=== PATIENT | female | born 1970 | race Two or more races ===

== ENCOUNTER → 2017-03-20 | Outpatient (CLI) | payer OTHER ==
[~2017-03-20] MED LIST: BETA15CR5 TP; CETI10TA22 PO; IBUP-1060 PO
[2017-03-20 17:44] LABS: BASO # 0.1 x10^3/uL (0.0-0.2); BASO % 1 % (0-3); EOS % 4 % (0-3); HEMATOCRIT 41.6 % (36.0-47.0); HEMOGLOBIN 14.1 g/dL (12.0-15.5); LYMPH # 1.7 x10^3/uL (1.0-4.8); LYMPH % 29 % (24-48); MEAN CORPUSCULAR HEMOGLOBIN 29 pg (25-35); MEAN CORPUSCULAR HGB CONC 34 g/dL (31-37); MEAN CORPUSCULAR VOLUME 86 fL (79-100); MONO % 7 % (0-9); NEUT % 59 % (31-73); PLATELET COUNT 232 x10^3/uL (140-400); RED BLOOD COUNT 4.84 x10^6/uL (3.50-5.40); RED CELL DISTRIBUTION WIDTH 13.2 % (11.5-14.5)
[2017-03-20 17:58] LABS: CALCIUM 9.2 mg/dL (8.5-10.1); GFR 59.2; POTASSIUM 3.8 mmol/L (3.5-5.1); TOTAL BILIRUBIN 0.3 mg/dL (0.2-1.0); TOTAL PROTEIN 8.2 g/dL (6.4-8.2)
[2017-03-21 05:20] LABS: FSH 41.6 mIU/mL (.); LUTEINIZING HORMONE 27.6 mIU/mL (.)
== END | disposition home or self-care (01) ==
LOC: SURGPAT 16:02
PROVIDERS: ATTEND Obstetrics & Gynecology
DX: Z01.812 Encounter for preprocedural laboratory examination (principal)
CPT/HCPCS: 36415; 80053; 83001; 83002; 85027

== ENCOUNTER 2017-03-27 06:06 | Inpatient (IN) | payer OTHER ==
[2017-03-27] VITALS (9 sets, daily range): BP systolic 106–135; BP diastolic 75–95
[~2017-03-27] VITALS: Ht 165.1 cm; Wt 101.6 kg
[2017-03-27] MEDS ORDERED: fentaNYL PF VIAL 100 MCG/2 ML VIAL IV PRN (07:00)
[2017-03-27] MEDS ORDERED: ONDANSETRON PF 4 MG/2 ML VIAL. IV PRN ×2 (07:00→11:00)
[2017-03-27] MEDS ORDERED: LIDOCAINE 1% 1 ML SYRINGE. ID PRN (07:00)
[2017-03-27] MEDS ORDERED: IV RINGERS,LACTATED 1000ML 1,000 ML IV SCH (07:00)
[2017-03-27] MEDS ORDERED: PROCHLORPERAZINE 10 MG/2 ML VIAL. IV PRN (07:00)
[2017-03-27] MEDS ORDERED: HYDROmorphone 2 MG/ML VIAL IV PRN ×2 (07:00→11:00)
[2017-03-27] MEDS ORDERED: MORPHINE SULFATE 2 MG/ML DISP.SYRIN. IV PRN (07:00)
[2017-03-27] MEDS ORDERED: VASOPRESSIN 20 UNIT/ML VIAL. ONE ×2 (07:06→08:52)
[2017-03-27] MEDS ORDERED: BUPIVACAINE-EPI 0.5%-1:200000 50 ML VIAL. ONE (07:06)
[2017-03-27] MEDS ORDERED: DEXAMETHASONE SOD PHOS 20 MG/5 ML VIAL. ONE (07:09)
[2017-03-27] MEDS ORDERED: ONDANSETRON PF 4 MG/2 ML VIAL. ONE (07:09)
[2017-03-27] MEDS ORDERED: PROPOFOL 20 ML IV ONE (07:10)
[2017-03-27] MEDS ORDERED: LIDOCAINE 2% 100 MG/5 ML SYRINGE. ONE (07:10)
[2017-03-27] MEDS ORDERED: MIDAZOLAM HCL/PF 2 MG/2 ML VIAL. ONE (07:10)
[2017-03-27] MEDS ORDERED: fentaNYL PF VIAL 100 MCG/2 ML VIAL ONE ×3 (07:10→09:57)
[2017-03-27] MEDS ORDERED: ROCURONIUM 50 MG/5 ML VIAL. ONE ×2 (07:10→09:33)
[2017-03-27 07:20] LABS: NEG OBC UR NEG; POS OBC UR POS
[2017-03-27] MEDS ORDERED: GLYCOPYRROLATE 1 MG/5 ML VIAL. ONE (08:32)
[2017-03-27] MEDS ORDERED: SEVOFLURANE > 120 MINUTES. IH ONE (09:39)
[2017-03-27] MEDS ORDERED: ACETAMINOPHEN INTRAVENOUS 100 ML IV ONE ×2 (09:52→10:00)
[2017-03-27] MEDS ORDERED: NEOSTIGMINE METHYLSULFATE 5 MG/5 ML SYRINGE. ONE (10:21)
--- NOTE | 2017-03-27 10:48 | PDOC ---
BRIEF OPERATIVE NOTE Date: Mar 27, 2017 Pre-Op Diagnosis fibroid uterus, pelvic pain Post-Op Diagnosis same plus pelvic adhesive disease Procedure Performed carla and enterolysis Surgeon [employer] Compliance Director Timothy Anesthesiologist Analia Anesthesia Type: General Blood Loss 800cc IV Fluid 2000cc LR Urine Output 225cc- clear Specimens Obtained uterus, segments of tubes. Ovaries were not seen despite multiple attempts to locate them Findings see dictation; fibroids Complications none Additional Remarks [id number] DARLING JOE MD Mar 27, 2017 10:48
[2017-03-27] MEDS: fentaNYL PF VIAL 100 MCG/2 ML VIAL IV PRN ×4 (10:56→11:35)
[2017-03-27] MEDS ORDERED: ZOLPIDEM 5 MG TABLET. PO PRN (11:00)
[2017-03-27] MEDS ORDERED: ALBUTEROL SULFATE 2.5 MG/3 ML NEBU. NEB PRN (11:00)
[2017-03-27] MEDS ORDERED: oxyCODONE/APAP 5/325 1 TAB TABLET PO PRN (11:00)
[2017-03-27] MEDS ORDERED: CALCIUM CARBONATE 500 MG TAB.CHEW PO PRN (11:00)
[2017-03-27] MEDS ORDERED: diphenhydrAMINE HCL 25 MG CAPSULE PO PRN (11:00)
[2017-03-27] MEDS ORDERED: METOCLOPRAMIDE HCL 10 MG/2 ML VIAL. IV PRN (11:00)
[2017-03-27] MEDS ORDERED: NALOXONE 0.4 MG/ML VIAL. IV PRN (11:00)
[2017-03-27] MEDS ORDERED: 0.9 % SODIUM CHLORIDE 10 ML DISP.SYRIN. IV PRN (11:00)
[2017-03-27] MEDS ORDERED: LACTULOSE 20 GM/30 ML SOLUTION. PO PRN (11:00)
[2017-03-27] MEDS ORDERED: HYDROmorphone 2 MG/ML VIAL IM PRN (11:00)
[2017-03-27] MEDS ORDERED: diphenhydrAMINE 50 MG/ML VIAL IV PRN (11:15)
[2017-03-27] MEDS: KETOROLAC TROMETHAMINE 30 MG/ML INJ. IV PRN ×2 (13:58→22:43)
--- NOTE | 2017-03-27 14:33 | OP ---
DATE OF SURGERY: PREOPERATIVE DIAGNOSES: Fibroid uterus and pelvic pain. POSTOPERATIVE DIAGNOSES: 1. Fibroid uterus and pelvic pain. 2. Pelvic adhesive disease. PROCEDURE: Total abdominal hysterectomy and enterolysis. SURGEON: Chitra Joe MD. ANESTHESIOLOGIST: Adis Tejada MD ANESTHESIA TYPE: General. ESTIMATED BLOOD LOSS: 800 mL. INTRAVENOUS FLUIDS: 2000 mL of LR. URINE OUTPUT: 225 mL of clear urine. SPECIMENS: Enlarged fibroid uterus and probable segments of tubes. The ovaries were not seen despite multiple attempts to locate them. COMPLICATIONS: None. DESCRIPTION OF PROCEDURE: After informed consent was obtained, the patient was taken to the operating room and given a smooth induction of anesthesia without complications. Her abdomen was prepped and draped in the usual sterile fashion. She was in the supine position with a Anne catheter placed. She was given 1 g of Ancef prior to the procedure beginning. A Pfannenstiel incision was made 2 fingerbreadths above the pubic bone with a knife. The incision was carried down through the subcuticular tissue using dissection with the Bovie. The fascia was scored bilaterally and then extended bilaterally using dissection with the Pope scissors. We then the rectus muscles in the midline and entered the peritoneum using blunt dissection. We extended the peritoneal incision using blunt force and encountered the fibroid uterus. The uterus was very large, at least 24-25 weeks size with multiple large fibroids. When we felt around the back of the uterus in order to lift it up out of the incision, it was noted to be adherent in multiple places to the colon and bowel behind it. The patient had not had any surgery in the past, so this was a little bit of a surprise. We were able to find the round ligament on the left side. This ligament was tied off in two occasions and transected in the middle. We then dissected along the anterior peritoneum creating a bladder flap using sharp dissection. At this point, we attempted to move the uterus around so that we could dissect some of the tissue off of the back. We were able to dissect some of this with blunt dissection was just her fingers and some of it had to be dissected with the Metzenbaum scissors. We were able to transect the round ligament on the left side using the similar process. Again, the bladder flap was extended anteriorly over the bladder and the bladder was retracted inferiorly using blunt dissection with a Ray-Jhonny; the bladder came down very easily. As we attempted to move the uterus up out of the pelvis; we had one of fibroids that we had a tenaculum on and it was starting to come out of the uterus. Therefore, we did a myomectomy and removed this fibroid. There was another one on the anterior surface that we did the same procedure to. The pedicles were tied off with two transfixion sutures. We then turned our attention to the uterine blood supply. We were able to get the blood supply on the right side using curved Heaneys, we clamped them twice and clamped the blood supply twice, cut the pedicle and then secured with two Tam transfixion sutures. We were then able to dissect down the side of the cervix using straight Heaneys and these were tied off in a similar fashion; these pedicles were tied off in the similar fashion. We were then able to mobilize the uterus a little bit better. We were able to finally bring it up out of the pelvis and see the posterior adhesions a little bit better. Most of these were dissected bluntly and this was where most of our bleeding came from. Because what appeared to be small bowel was so adherent on the right side of the posterior uterus, we decided to score the back of the uterus and actually push some of the uterine tissue down to take the small bowel with it similar to an intrafascial hysterectomy. Once this was done, the adhesions were all out of the way. We were then able proceed with the hysterectomy, we continued to clamp, cut and ligate the uterine pedicles going down to the cervix. Once these were taken down, we were able to enter the vagina at the level of the cervix. The Vaughn scissors were then used to cut around the top of the vagina. The uterus was then removed from the field. She actually had a very small cervix, but the uterus itself was just very large and then there was a little tear down the left vaginal wall, which were repaired coming up the side. We then placed two angle stitches on top of the cuff and then closed the cuff using interrupted [id number] sutures in the middle. Once this was complete, we turned our attention to find the ovaries. At this point, we had not seen the ovaries at all. We had traced part of at least one of the tubes which was on the right side that was attached to the uterus and we were able to remove this with the uterus. However, we were never able to identify the ovary on either side. We manipulated the bowel to be able to see both sides of the pelvis very well. We traced the round ligaments back to their entrance and so we could not find the ovaries. The patient's wish was to take her ovaries; however since we were unable to locate them and we felt that digging around into the pelvic sidewall was only going to serve to extract more bleeding, we decided to abandon our search for the ovaries at this point. We irrigated the pelvis copiously. There was some general oozing, but no active bleeding. We could not find the location where the bleeding was actually coming from. We did spray Dre on the raw surfaces and this seemed to take care of all of the oozing. We decided to place a drain in the pelvis. This was placed into the depth of the pelvis. We then brought it out through the lower skin incision using a Victorino through the fascia. This was secured to the skin with stitch of 4-[address] in [address]. We then allowed the bowel to fall back into its natural position. All needle and sponge counts were correct at this point in time. We closed the fascia with a running nonlocking suture of 2-0 Vicryl and irrigated the subcuticular tissue. We placed a subcuticular stitch of 3-0 Vicryl to help close the space and then closed the skin with francisco javier. At this point, the procedure was terminated. The patient tolerated the procedure well. Her blood loss was 800 mL. Her IV fluid was 2000 of LR and her urine output was 225 mL of clear urine. I do need to mention that we did palpate the ureter on both sides but we were never able to see them. The patient tolerated the procedure well. There were no complications. CHITRA JOE MD DR: JOSE LUIS/thu JOB#: [id number] / [id number]
[2017-03-28 03:17] VITALS: BP 119/74
[2017-03-28 05:21] LABS: BASO % 0 % (0-3); EOS % 0 % (0-3); HEMATOCRIT 31.3 % (36.0-47.0); HEMOGLOBIN 10.7 g/dL (12.0-15.5); LYMPH # 1.1 x10^3/uL (1.0-4.8); LYMPH % 13 % (24-48); MEAN CORPUSCULAR HEMOGLOBIN 29 pg (25-35); MEAN CORPUSCULAR HGB CONC 34 g/dL (31-37); MEAN CORPUSCULAR VOLUME 85 fL (79-100); MONO % 12 % (0-9); NEUT % 75 % (31-73); PLATELET COUNT 186 x10^3/uL (140-400); RED BLOOD COUNT 3.68 x10^6/uL (3.50-5.40); RED CELL DISTRIBUTION WIDTH 13.2 % (11.5-14.5); WHITE BLOOD COUNT 8.7 x10^3/uL (4.0-11.0)
[2017-03-28 05:30] LABS: CALCIUM 8.5 mg/dL (8.5-10.1); CREATININE 1.1 mg/dL (0.6-1.0); POTASSIUM 4.5 mmol/L (3.5-5.1)
[2017-03-28] MEDS: KETOROLAC TROMETHAMINE 30 MG/ML INJ. IV PRN (06:02)
[2017-03-28 06:36] VITALS: BP 108/71
--- NOTE | 2017-03-28 08:26 | PDOC ---
SURGICAL PROGRESS NOTE Subjective Pt doing well. Is drinking without nausea. Pain under control with dilaudid. No complaints this am. Discussed surgery and difficulty. Vital Signs Vital Signs Date Time Temp Pulse Resp B/P Pulse Ox O2 Delivery O2 Flow Rate FiO2 03/28/17 06:36 98.7 87 18 108/71 95 Room Air 98.7 03/27/17 23:15 2.0 I&O Intake and Output 03/28/17 07:00 Intake Total 1990 ml Output Total 2060 ml Balance -70 ml Intake Oral 640 ml Other 1350 ml Output Urine Total 1450 ml Drainage Total 610 ml PATIENT HAS A ZAFAR: No (zafar removed this am) General: Alert, Oriented X3, Cooperative, No acute distress HEENT: Mucous membr. moist/pink Abdomen: Normal bowel sounds, Soft, No tenderness, No hepatosplenomegaly, No masses, Other (Incision soft, NT, no masses) Labs Creatinine elevated at 1.1. Laboratory Tests Test 03/27/17 06:15 03/27/17 15:00 03/28/17 05:05 Urine Test Negative (NEG) Hematocrit 37.8% (36.0-47.0) 31.3% (36.0-47.0) White Blood Count 8.7x10^3/uL (4.0-11.0) Red Blood Count 3.68x10^6/uL (3.50-5.40) Hemoglobin 10.7g/dL (12.0-15.5) Mean Corpuscular Volume 85fL (79-100) Mean Corpuscular Hemoglobin 29pg (25-35) Mean Corpuscular Hemoglobin Concent 34g/dL (31-37) Red Cell Distribution Width 13.2% (11.5-14.5) Platelet Count 186x10^3/uL (140-400) Neutrophils (%) (Auto) 75% (31-73) Lymphocytes (%) (Auto) 13% (24-48) Monocytes (%) (Auto) 12% (0-9) Eosinophils (%) (Auto) 0% (0-3) Basophils (%) (Auto) 0% (0-3) Neutrophils # (Auto) 6.5x10^3uL (1.8-7.7) Lymphocytes # (Auto) 1.1x10^3/uL (1.0-4.8) Monocytes # (Auto) 1.0x10^3/uL (0.0-1.1) Eosinophils # (Auto) 0.0x10^3/uL (0.0-0.7) Basophils # (Auto) 0.0x10^3/uL (0.0-0.2) Sodium Level 139mmol/L (136-145) Potassium Level 4.5mmol/L (3.5-5.1) Chloride Level 106mmol/L (98-107) Carbon Dioxide Level 27mmol/L (21-32) Anion Gap 6 (6-14) Blood Urea Nitrogen 13mg/dL (7-20) Creatinine 1.1mg/dL (0.6-1.0) Estimated GFR (Cockcroft-Gault) 53.0 Glucose Level 121mg/dL (70-99) Calcium Level 8.5mg/dL (8.5-10.1) Laboratory Tests Test 03/27/17 15:00 03/28/17 05:05 Hematocrit 37.8% (36.0-47.0) 31.3% (36.0-47.0) White Blood Count 8.7x10^3/uL (4.0-11.0) Red Blood Count 3.68x10^6/uL (3.50-5.40) Hemoglobin 10.7g/dL (12.0-15.5) Mean Corpuscular Volume 85fL (79-100) Mean Corpuscular Hemoglobin 29pg (25-35) Mean Corpuscular Hemoglobin Concent 34g/dL (31-37) Red Cell Distribution Width 13.2% (11.5-14.5) Platelet Count 186x10^3/uL (140-400) Neutrophils (%) (Auto) 75% (31-73) Lymphocytes (%) (Auto) 13% (24-48) Monocytes (%) (Auto) 12% (0-9) Eosinophils (%) (Auto) 0% (0-3) Basophils (%) (Auto) 0% (0-3) Neutrophils # (Auto) 6.5x10^3uL (1.8-7.7) Lymphocytes # (Auto) 1.1x10^3/uL (1.0-4.8) Monocytes # (Auto) 1.0x10^3/uL (0.0-1.1) Eosinophils # (Auto) 0.0x10^3/uL (0.0-0.7) Basophils # (Auto) 0.0x10^3/uL (0.0-0.2) Sodium Level 139mmol/L (136-145) Potassium Level 4.5mmol/L (3.5-5.1) Chloride Level 106mmol/L (98-107) Carbon Dioxide Level 27mmol/L (21-32) Anion Gap 6 (6-14) Blood Urea Nitrogen 13mg/dL (7-20) Creatinine 1.1mg/dL (0.6-1.0) Estimated GFR (Cockcroft-Gault) 53.0 Glucose Level 121mg/dL (70-99) Calcium Level 8.5mg/dL (8.5-10.1) I have reviewed the following labs, vitals, exam Problem List POD #1 s/p Hector and extensive adhesiolysis. Pt is clinically stable, but drain is putting out excessive serosang. fluid and creatinine is elevated. Will evaluate kidneys and ureters to r/o injury Problems Medical Problems: (1) Fibroid, uterine Status: Acute (2) Pelvic adhesive disease Status: Acute (3) Pelvic pain Status: Acute 4) elevated creatinine. - will evaluate for possible injury to ureters or kidney. Urine output is acceptable. 5) anemia- from surgery. Problems: DARLING JOE MD Mar 28, 2017 08:26
[2017-03-28] MEDS: CETIRIZINE HCL 10 MG TABLET. PO SCH (09:27)
[2017-03-28] MEDS: SIMETHICONE 80 MG TAB.CHEW PO PRN ×2 (09:28→18:05)
[2017-03-28] MEDS: HYDROcodone/APAP 5/325MG 1 TAB TABLET PO PRN (09:28)
[2017-03-28] MEDS ORDERED: IOHEXOL 300 MG/ML 50 ML VIAL. IV ONE (09:30)
[2017-03-28] MEDS ORDERED: CONTRAST GIVEN MC PRN (09:30)
[2017-03-28 11:00] VITALS: BP 124/76
--- NOTE | 2017-03-28 11:07 | RAD ---
IVP History: Elevated creatinine after hysterectomy. Evaluate for ureteral injury. Comparison: None. Technique: 1 flying ii instructor overhead radiograph was obtained. 50 mL of Omnipaque 300 intravenous contrast were then administered to the patient. Overhead radiographs of the abdomen were obtained 1, 5, 10, and 15 minutes after contrast injection. 2 additional fluoroscopic images of the abdomen and pelvis were obtained. Total fluoroscopic time was 0.3 minutes. Findings: Financial Agent image demonstrates gas-filled loops of colon small bowel. Bowel loops do not appear dilated. Surgical drain is seen in the pelvis. Horizontally oriented surgical skin francisco javier are seen involving the lower pelvis. There is no gas seen in the pelvis, compatible with the history of recent hysterectomy. Postcontrast images demonstrate symmetric enhancement of both kidneys. There is opacification of the proximal and mid third of the left ureter. The distal third left ureter is not seen. Portions of the proximal right ureter are seen as well as the upper portion of the distal third of the right ureter. The most distal aspects of both ureters were not captured radiographically. 2 spot fluoroscopic images were obtained in attempt to visualize the distal ureters, but distal ureters are not seen secondary to transit of contrast material into the urinary bladder. There is no evidence of ureteral dilatation to suggest ligation or extraluminal contrast to suggest ureteral injury. Urinary bladder has appropriate contour. Impression: Limited visualization of portions of both ureters. No ureteral dilatation or extraluminal contrast is identified to suggest ureteral ligation or injury.
[2017-03-28 14:19] VITALS: BP 140/89
[2017-03-28] MEDS: IBUPROFEN 600 MG TABLET. PO PRN (21:35)
[2017-03-28 23:19] VITALS: BP 121/76
[2017-03-29] MEDS: BISACODYL 10 MG SUPP.RECT. PR PRN (06:15)
[2017-03-29] MEDS: IBUPROFEN 600 MG TABLET. PO PRN ×2 (06:16→17:36)
[2017-03-29 06:34] VITALS: BP 104/70
[2017-03-29] MEDS: CETIRIZINE HCL 10 MG TABLET. PO SCH (08:16)
[2017-03-29] MEDS: SIMETHICONE 80 MG TAB.CHEW PO PRN ×2 (08:16→17:43)
[2017-03-29] MEDS: MAG HYDROX/ALUMINUM HYD/SIMETH 30 ML ORAL.SUSP PO PRN (08:16)
[2017-03-29] MEDS: HYDROcodone/APAP 5/325MG 1 TAB TABLET PO PRN (08:17)
--- NOTE | 2017-03-29 08:54 | PDOC ---
SURGICAL PROGRESS NOTE Subjective Doing well. Tolerating regular diet and passing some gas. Feeling gas rumbling around in stomach. Taking mostly motrin, although has used some lortab and feels like this is working better. Vital Signs Vital Signs Date Time Temp Pulse Resp B/P Pulse Ox O2 Delivery O2 Flow Rate FiO2 03/29/17 08:17 18 Room Air 03/29/17 06:34 98.1 76 104/70 98.1 03/28/17 14:19 96 I&O Intake and Output 03/29/17 06:59 Intake Total 1440 ml Output Total 1905 ml Balance -465 ml Intake Oral 1440 ml Output Urine Total 950 ml Drainage Total 955 ml # Voids 1 PATIENT HAS A COLMENARES: No General: Alert, Oriented X3, Cooperative, No acute distress HEENT: Mucous membr. moist/pink Abdomen: Normal bowel sounds, Soft, No tenderness, No hepatosplenomegaly, No masses, Other (incision c/d/i) Extremities: No clubbing, No cyanosis, No edema, Normal pulses, No tenderness/ swelling Skin: No rashes, No breakdown, No significant lesion Neuro: Normal gait, Normal speech, Strength at 5/5 X4 ext, Normal tone, Sensation intact, Reflexes 2+ Psych/Mental Status: Mental status NL, Mood NL Labs Labs have not yet been drawn this morning. Laboratory Tests Test 03/27/17 15:00 03/28/17 05:05 Hematocrit 37.8% (36.0-47.0) 31.3% (36.0-47.0) White Blood Count 8.7x10^3/uL (4.0-11.0) Red Blood Count 3.68x10^6/uL (3.50-5.40) Hemoglobin 10.7g/dL (12.0-15.5) Mean Corpuscular Volume 85fL (79-100) Mean Corpuscular Hemoglobin 29pg (25-35) Mean Corpuscular Hemoglobin Concent 34g/dL (31-37) Red Cell Distribution Width 13.2% (11.5-14.5) Platelet Count 186x10^3/uL (140-400) Neutrophils (%) (Auto) 75% (31-73) Lymphocytes (%) (Auto) 13% (24-48) Monocytes (%) (Auto) 12% (0-9) Eosinophils (%) (Auto) 0% (0-3) Basophils (%) (Auto) 0% (0-3) Neutrophils # (Auto) 6.5x10^3uL (1.8-7.7) Lymphocytes # (Auto) 1.1x10^3/uL (1.0-4.8) Monocytes # (Auto) 1.0x10^3/uL (0.0-1.1) Eosinophils # (Auto) 0.0x10^3/uL (0.0-0.7) Basophils # (Auto) 0.0x10^3/uL (0.0-0.2) Sodium Level 139mmol/L (136-145) Potassium Level 4.5mmol/L (3.5-5.1) Chloride Level 106mmol/L (98-107) Carbon Dioxide Level 27mmol/L (21-32) Anion Gap 6 (6-14) Blood Urea Nitrogen 13mg/dL (7-20) Creatinine 1.1mg/dL (0.6-1.0) Estimated GFR (Cockcroft-Gault) 53.0 Glucose Level 121mg/dL (70-99) Calcium Level 8.5mg/dL (8.5-10.1) I have reviewed the following vitals, PE Problem List POD #2 s/p SEBAS and extensive adhesiolysis Pt is tolerating diet and ambulating. If labs are normal, pt would like to go home. Is comfortable emptying her drain at home and will keep track of her output. Problems Medical Problems: (1) Fibroid, uterine Status: Acute (2) Pelvic adhesive disease Status: Acute (3) Pelvic pain Status: Acute 4) elevated creatinine yesterday. Awaiting labs for today. IVP yesterday did not show any evidence of ureteral injury due to surgery. Plan for discharge Problems: DARLING JOE MD Mar 29, 2017 08:54
--- NOTE | 2017-03-29 08:56 | DISCH ---
DISCHARGE INSTRUCTIONS Condition on Discharge Condition on Discharge: Stable Activity After Discharge Activity Instructions for Disc: Activity as tolerated, Progressive ambulation Exercise Instruction after Dis: Progress as tolerated Driving Instructions after Dis: No driving for 2 weeks Weight Bearing Status after Di: Full weight bearing Diet after Discharge Diet after Discharge: Regular Wound Incision Care Wound/Incision Care: Ice to area for comfort, May get incision wet Other wound/incision instructi: empty drain and keep track of output Contacting the DR. after DC Call your doctor for: If your condition worsens Follow-Up Follow up with: Dr. Joe on Saturday as scheduled DARLING JOE MD Mar 29, 2017 08:56
[2017-03-29 11:11] LABS: ALBUMIN 3.1 g/dL (3.4-5.0); ALBUMIN/GLOBULIN RATIO 0.8 (1.0-1.7); CALCIUM 8.8 mg/dL (8.5-10.1); CREATININE 1.2 mg/dL (0.6-1.0); GFR 47.9; POTASSIUM 4.1 mmol/L (3.5-5.1); TOTAL BILIRUBIN 0.3 mg/dL (0.2-1.0)
[2017-03-29 15:00] VITALS: BP 113/81
--- NOTE | 2017-03-29 16:03 | PATHOLOGY ---
PATHOLOGY REPORT * * * * * * * * FINAL DIAGNOSIS: Uterus, cervix, and fallopian tube, "uterus and cervix," hysterectomy: - Uterine cervix with moderate chronic cervicitis and reactive changes. - An endometrial polyp with disordered proliferative phase bordering on focal simple hyperplasia without atypia. - Adenomyosis - Myometrium with multiple cellular leiomyomas measuring up to 11.0 cm in greatest dimension without any hemorrhage, necrosis, or marked atypia. - Fallopian tube with focus of endometriosis and surrounding fibrosis. - Portion of ovary with the attached portion of grossly described leiomyoma. - There is no evidence of malignancy. REPORT ELECTRONICALLY SIGNED BY: Ambrocio Forde M.D. DATE/TIME: 03/29/2017 16:03 * * * * * * * * GROSS PATHOLOGY: A. Received in formalin, labeled "RosalesMatthew simmons-uterus, cervix" is a hysterectomy specimen (1784 g, approximately 17.5 x 17.5 x 15 cm). The serosa is brown-moffett, smooth to ragged and glistening with multiple areas of adhesions. For grossing purposes, the aspect with more adhesions will be denoted posterior. The cervix is yellow-pink, smooth and glistening and measures 2.2 x 1.5 cm. The cervical os is round and measures 0.3 cm. The cervical os is probed patent, and the uterus is bisected coronally to reveal a 15 x 6 cm endometrial cavity. The anterior endometrial cavity features a 4.1 x 2.6 x 1.3 cm red-barfield endometrial polyp and a 0.7 cm apparent submucosal leiomyoma. The uterus is serially sectioned to reveal an average endometrial thickness of 0.1 cm and an average myometrial thickness of approximately 6.5 cm. The uterus reveals numerous subserosal, submucosal and mural whorled barfield-pink nodules grossly consistent with leiomyomata, measuring up to 11 cm in greatest dimension. No discrete hemorrhage or necrosis is grossly identified within the leiomyomata. Attached to the uterus is the left tube (8 cm in length, ranging in diameter from 0.3 cm up to 1.0 cm). The tube features multiple areas of adhesions. The tube is sectioned and appears otherwise grossly unremarkable. Adjacent to the tube, there is a 3.8 x 3.7 x 3.2 cm moffett-brown mass. The mass is sectioned to reveal a white-barfield apparent leiomyoma. No discrete hemorrhage or necrosis is grossly identified. The rim surrounding the apparent leiomyoma appears grossly consistent with ovarian parenchyma. Also within the container, there are 3 yellow-barfield to purple-moffett tissue fragments (139 g, 8 x 6 x 4 cm in loose aggregate). The 2 larger fragments are sectioned and appear grossly consistent with leiomyomata. No discrete hemorrhage or necrosis is grossly identified. The smallest tissue fragment is sectioned to reveal a rubbery cut surface. Service Trainer sections are submitted as follows: A1-agency service representative sections of anterior cervix A2-agency service representative sections of posterior cervix P8-Q1-eadvaqycmobipa sections of anterior uterus, including endometrial polyp described above in its entirety (A6-A7 is one full length section, bisected) A8-additional agency service representative sections of anterior uterus, including agency service representative sections of leiomyomata Y7-V83-elceprubnjbbwq sections of posterior uterus (A9 contains agency service representative section of leiomyoma and A10-A11 contains agency service representative sections of largest leiomyoma) H44-bqgjrekvjdehqh sections of tube E68-P51-fkxnsrzyvtntbv sections of ovary and leiomyoma described above X49-uilkkjnflaeurn sections of the 3 additional tissue fragments within the container (GARRETT; 03/28/2017) INITIAL CPT CODE(S): A; 17913 Professional services performed by [facility] at [address] [address] Technical services performed by [facility] at [address] [place] [address], [facility] [address] [address]. SPECIMEN(S) RECEIVED: A.Uterus, cervix CLINICAL HISTORY: Fibroids PATIENT: MATTHEW ROSALES /AGE: 706/07/1970 (Age: 46) PATIENT #: [id number] ALT CASE #: SPECIMEN COLLECTION DATE: 03/27/2017 SPECIMEN RECEIVED DATE: 03/27/2017 [facility] - [id number] [place] [address] - PHONE: [phone] * * * END OF REPORT * * *
--- NOTE | 2017-03-29 17:31 | PDOC ---
SURGICAL PROGRESS NOTE Subjective Pt without complaint. Is eating and tolerating her oral pain meds. Urine has been clear Vital Signs Vital Signs Date Time Temp Pulse Resp B/P Pulse Ox O2 Delivery O2 Flow Rate FiO2 03/29/17 15:00 98.4 85 20 113/81 94 Room Air 98.4 I&O Intake and Output 03/29/17 07:00 Intake Total 1440 ml Output Total 1905 ml Balance -465 ml Intake Oral 1440 ml Output Urine Total 950 ml Drainage Total 955 ml # Voids 1 PATIENT HAS A COLMENARES: No General: Alert, Oriented X3, Cooperative, No acute distress HEENT: Mucous membr. moist/pink Labs Laboratory Tests Test 03/28/17 05:05 03/29/17 10:20 03/29/17 10:25 White Blood Count 8.7x10^3/uL (4.0-11.0) Red Blood Count 3.68x10^6/uL (3.50-5.40) Hemoglobin 10.7g/dL (12.0-15.5) 10.4g/dL (12.0-15.5) Hematocrit 31.3% (36.0-47.0) Mean Corpuscular Volume 85fL (79-100) Mean Corpuscular Hemoglobin 29pg (25-35) Mean Corpuscular Hemoglobin Concent 34g/dL (31-37) Red Cell Distribution Width 13.2% (11.5-14.5) Platelet Count 186x10^3/uL (140-400) Neutrophils (%) (Auto) 75% (31-73) Lymphocytes (%) (Auto) 13% (24-48) Monocytes (%) (Auto) 12% (0-9) Eosinophils (%) (Auto) 0% (0-3) Basophils (%) (Auto) 0% (0-3) Neutrophils # (Auto) 6.5x10^3uL (1.8-7.7) Lymphocytes # (Auto) 1.1x10^3/uL (1.0-4.8) Monocytes # (Auto) 1.0x10^3/uL (0.0-1.1) Eosinophils # (Auto) 0.0x10^3/uL (0.0-0.7) Basophils # (Auto) 0.0x10^3/uL (0.0-0.2) Sodium Level 139mmol/L (136-145) 140mmol/L (136-145) Potassium Level 4.5mmol/L (3.5-5.1) 4.1mmol/L (3.5-5.1) Chloride Level 106mmol/L (98-107) 104mmol/L (98-107) Carbon Dioxide Level 27mmol/L (21-32) 31mmol/L (21-32) Anion Gap 6 (6-14) 5 (6-14) Blood Urea Nitrogen 13mg/dL (7-20) 12mg/dL (7-20) Creatinine 1.1mg/dL (0.6-1.0) 1.2mg/dL (0.6-1.0) Estimated GFR (Cockcroft-Gault) 53.0 47.9 Glucose Level 121mg/dL (70-99) 125mg/dL (70-99) Calcium Level 8.5mg/dL (8.5-10.1) 8.8mg/dL (8.5-10.1) BUN/Creatinine Ratio 10 (6-20) Total Bilirubin 0.3mg/dL (0.2-1.0) Aspartate Amino Transf (AST/SGOT) 30U/L (15-37) Alanine Aminotransferase (ALT/SGPT) 30U/L (14-59) Alkaline Phosphatase 47U/L (46-116) Total Protein 7.0g/dL (6.4-8.2) Albumin 3.1g/dL (3.4-5.0) Albumin/Globulin Ratio 0.8 (1.0-1.7) Laboratory Tests Test 03/29/17 10:20 03/29/17 10:25 Hemoglobin 10.4g/dL (12.0-15.5) Sodium Level 140mmol/L (136-145) Potassium Level 4.1mmol/L (3.5-5.1) Chloride Level 104mmol/L (98-107) Carbon Dioxide Level 31mmol/L (21-32) Anion Gap 5 (6-14) Blood Urea Nitrogen 12mg/dL (7-20) Creatinine 1.2mg/dL (0.6-1.0) Estimated GFR (Cockcroft-Gault) 47.9 BUN/Creatinine Ratio 10 (6-20) Glucose Level 125mg/dL (70-99) Calcium Level 8.8mg/dL (8.5-10.1) Total Bilirubin 0.3mg/dL (0.2-1.0) Aspartate Amino Transf (AST/SGOT) 30U/L (15-37) Alanine Aminotransferase (ALT/SGPT) 30U/L (14-59) Alkaline Phosphatase 47U/L (46-116) Total Protein 7.0g/dL (6.4-8.2) Albumin 3.1g/dL (3.4-5.0) Albumin/Globulin Ratio 0.8 (1.0-1.7) I have reviewed the following labs, vitals Problem List Problems Medical Problems: (1) Fibroid, uterine Status: Acute (2) Pelvic adhesive disease Status: Acute (3) Pelvic pain Status: Acute Assessment/Plan Since pt had 900+cc of drain output yesterday, I spoke to Dr. Boo (urology). I expressed my concern about her drain output. Discussed that the IVP did not show any ureteral or bladder injury. Dr. Boo reviewed the IVP and stated that with the bowel gas in the way, this could obscure a small extravasation of contrast. Discussed the surgery. Doubt bladder injury, as the bladder was easy to dissect and there were no adhesions here. The adhesions were on the back and sides of the very large uterus. Dr. Boo suggested we do a creatinine on the MOLLY drainage. We ordered this stat, but apparently this is a send out test. I spoke with the lab and was assured it would be marked as stat. I discussed all of this with the patient and her . Explained that I am concerned and I am keeping her in the hospital until we can be certain whether this fluid is ascites or urine. Explained that the fact that she does not have a fever or other symptoms is a good sign. Will place formal urology consult if necessary when lab comes back. Problems: DARLING JOE MD Mar 29, 2017 17:31
[2017-03-29 20:25] VITALS: BP 120/88
[2017-03-30] MEDS: IBUPROFEN 600 MG TABLET. PO PRN ×3 (03:40→23:24)
[2017-03-30 03:44] VITALS: BP 134/86
[2017-03-30] MEDS: CETIRIZINE HCL 10 MG TABLET. PO SCH ×2 (09:00→20:31)
[2017-03-30 13:57] VITALS: BP 126/87
[2017-03-30] MEDS ORDERED: fentaNYL PF VIAL 100 MCG/2 ML VIAL ONE (14:28)
[2017-03-30] MEDS ORDERED: ONDANSETRON PF 4 MG/2 ML VIAL. ONE (14:28)
[2017-03-30] MEDS ORDERED: DESFLURANE 31 TO 60 MINUTES IH ONE (14:28)
[2017-03-30] MEDS ORDERED: PROPOFOL 20 ML IV ONE (14:28)
[2017-03-30] MEDS ORDERED: DEXAMETHASONE SOD PHOS 20 MG/5 ML VIAL. ONE (14:28)
[2017-03-30] MEDS ORDERED: IV RINGERS,LACTATED 1000ML 1,000 ML IV SCH (14:35)
--- NOTE | 2017-03-30 14:42 | PDOC ---
SURGICAL PROGRESS NOTE Subjective Pt doing well. Is ambulating the halls and tolerating pain meds. Pt has been kept NPO for possible surgery. Vital Signs Vital Signs Date Time Temp Pulse Resp B/P Pulse Ox O2 Delivery O2 Flow Rate FiO2 03/30/17 13:57 97.5 80 18 126/87 97.5 03/30/17 03:44 96 Room Air I&O Intake and Output 03/30/17 07:00 Output Total 1070 ml Balance -1070 ml Drainage Total 1070 ml # Bowel Movements 1 PATIENT HAS A COLMENARES: No General: Alert, Oriented X3, Cooperative, No acute distress HEENT: Mucous membr. moist/pink Lungs: Clear to auscultation, Normal air movement Abdomen: Soft, No tenderness, Other (Incision c/d/i; drain still draining copious amounts of fluid) Extremities: No clubbing, No cyanosis, No edema, Normal pulses, No tenderness/ swelling Labs Laboratory Tests Test 03/29/17 10:20 03/29/17 10:25 03/29/17 13:30 Hemoglobin 10.4g/dL (12.0-15.5) Sodium Level 140mmol/L (136-145) Potassium Level 4.1mmol/L (3.5-5.1) Chloride Level 104mmol/L (98-107) Carbon Dioxide Level 31mmol/L (21-32) Anion Gap 5 (6-14) Blood Urea Nitrogen 12mg/dL (7-20) Creatinine 1.2mg/dL (0.6-1.0) Estimated GFR (Cockcroft-Gault) 47.9 BUN/Creatinine Ratio 10 (6-20) Glucose Level 125mg/dL (70-99) Calcium Level 8.8mg/dL (8.5-10.1) Total Bilirubin 0.3mg/dL (0.2-1.0) Aspartate Amino Transf (AST/SGOT) 30U/L (15-37) Alanine Aminotransferase (ALT/SGPT) 30U/L (14-59) Alkaline Phosphatase 47U/L (46-116) Total Protein 7.0g/dL (6.4-8.2) Albumin 3.1g/dL (3.4-5.0) Albumin/Globulin Ratio 0.8 (1.0-1.7) Body Fluid Creatinine 91.1mg/dL (.) I have reviewed the following labs: body fluid creatinine is elevated consistent with urine and not peritoneal fluid Problem List Problems Medical Problems: (1) Fibroid, uterine Status: Acute (2) Pelvic adhesive disease Status: Acute (3) Pelvic pain Status: Acute 4) ascites/ urine draining from the MOLLY. Finally received the result on the body fluid creatinine we ordered stat yesterday. It was sent out to [facility] and I was told it would be back this morning. It finally came back about 1:30pm today. The elevated creatinine is consistent with urine and not peritoneal fluid. Discussed with pt the there is either a bladder or ureteral injury. I have spoken with Dr. Boo and he will consult on the case. He will proceed with cystoscopy and possible stent placement if necessary. Problems: DARLING JOE MD Mar 30, 2017 14:42
[2017-03-30] MEDS ORDERED: MORPHINE SULFATE 2 MG/ML DISP.SYRIN. IV PRN (14:45)
[2017-03-30] MEDS ORDERED: fentaNYL PF VIAL 100 MCG/2 ML VIAL IV PRN ×2 (14:45)
[2017-03-30] MEDS ORDERED: HYDROmorphone 2 MG/ML VIAL IV PRN (14:45)
[2017-03-30] MEDS ORDERED: ONDANSETRON PF 4 MG/2 ML VIAL. IV PRN (14:45)
[2017-03-30] MEDS ORDERED: LIDOCAINE 1% 1 ML SYRINGE. ID PRN (14:45)
[2017-03-30] MEDS ORDERED: IOHEXOL 300 MG/ML 50 ML VIAL. ONE (14:48)
[2017-03-30] MEDS ORDERED: LIDOCAINE 2% JELLY 6ML IN APPLICATOR. ONE (14:49)
--- NOTE | 2017-03-30 14:54 | PDOC ---
PROGRESS NOTES Subjective Subjective Pt. with large volume J-P drainage with drain fluid Cr. of 91 Objective Objective Vital Signs Date Time Temp Pulse Resp B/P Pulse Ox O2 Delivery O2 Flow Rate FiO2 03/30/17 13:57 97.5 80 18 126/87 97.5 03/30/17 03:44 96 Room Air 03/27/17 23:15 2.0 Intake and Output 03/30/17 07:00 Output Total 1070 ml Balance -1070 ml Drainage Total 1070 ml # Bowel Movements 1 Physical Exam Physical Exam J-P drain to bulb suction sero-sang in color Plan Plan of Care High output J-P drainage s/p hysterectomy Cr. of drain fluid-91 I discussed with the pt. the options, alternatives, benefits, risks, and possible complications of cystoscopy, bilateral retrograde pyelograms, and possible bilateral ureteral stent placement. Pt. understands and wishes to proceed with operation. Will proceed accordingly. Problems Medical Problems: (1) Fibroid, uterine Status: Acute (2) Pelvic adhesive disease Status: Acute (3) Pelvic pain Status: Acute Comment Review of Relevant I have reviewed the following items shey (where applicable) has been applied. Labs Laboratory Tests Test 03/29/17 10:20 03/29/17 10:25 03/29/17 13:30 Hemoglobin 10.4g/dL (12.0-15.5) Sodium Level 140mmol/L (136-145) Potassium Level 4.1mmol/L (3.5-5.1) Chloride Level 104mmol/L (98-107) Carbon Dioxide Level 31mmol/L (21-32) Anion Gap 5 (6-14) Blood Urea Nitrogen 12mg/dL (7-20) Creatinine 1.2mg/dL (0.6-1.0) Estimated GFR (Cockcroft-Gault) 47.9 BUN/Creatinine Ratio 10 (6-20) Glucose Level 125mg/dL (70-99) Calcium Level 8.8mg/dL (8.5-10.1) Total Bilirubin 0.3mg/dL (0.2-1.0) Aspartate Amino Transf (AST/SGOT) 30U/L (15-37) Alanine Aminotransferase (ALT/SGPT) 30U/L (14-59) Alkaline Phosphatase 47U/L (46-116) Total Protein 7.0g/dL (6.4-8.2) Albumin 3.1g/dL (3.4-5.0) Albumin/Globulin Ratio 0.8 (1.0-1.7) Body Fluid Creatinine 91.1mg/dL (.) Medications Current Medications Ondansetron HCl (Zofran) 4 mg PRN Q6HRS PRN IV NAUSEA/VOMITING; Start 03/27/17 at 07:00; Stop 03/28/17 at 06:59; Status DC Fentanyl Citrate (Fentanyl 2ml Vial) 25 mcg PRN Q5MIN PRN IV MILD PAIN; Start 03/27/17 at 07:00; Stop 03/28/17 at 06:59; Status DC Fentanyl Citrate (Fentanyl 2ml Vial) 50 mcg PRN Q5MIN PRN IV MODERATE PAIN Last administered on 03/27/17 11:35; Start 03/27/17 at 07:00; Stop 03/28/17 at 06:59; Status DC Morphine Sulfate 1 mg 1 mg PRN Q10MIN PRN IV SEVERE PAIN Last administered on 11:31; Start 03/27/17 at 07:00; Stop 03/28/17 at 06:59; Status DC Lactated Ringer's (Iv Lactated Ringers) 1,000 ml @ 0 mls/hr Q0M IV Last administered on 03/27/17 06:53; Start 03/27/17 at 07:00; Stop 03/27/17 at 18:59 ; Status DC Lidocaine HCl 2 ml PRN 1X PRN ID PRIOR TO IV START; Start 03/27/17 at 07:00; Stop 03/28/17 at 06:59; Status DC Hydromorphone HCl (Dilaudid) 0.5 mg PRN Q10MIN PRN IV SEV PAIN, Second choice Last administered on 03/27/17 12:33; Start 03/27/17 at 07:00; Stop 03/28/17 at 06:59; Status DC Prochlorperazine Edisylate 5 mg 5 mg PACU PRN PRN IV NAUSEA, MRX1 Last administered on 03/27/17 10:56; Start 03/27/17 at 07:00; Stop 03/28/17 at 06:59 ; Status DC Cefazolin Sodium (Ancef 1gm Ivpb For Omni) 50 ml @ 100 mls/hr 1X PREOP PRN IV PRIOR TO PROCEDURE Last administered on 03/27/17 08:10; Start 03/27/17 at 06:00 ; Stop 03/27/17 at 18:00; Status DC Bupivacaine HCl/ Epinephrine Bitart (Marcaine-Epi 0.5%-[id number]) 50 ml STK-MED ONCE .ROUTE Last administered on 03/27/17 07:43; Start 03/27/17 at 07:06; Stop 03/27/17 at 07:07; Status DC Vasopressin (Vasostrict) 20 unit STK-MED ONCE .ROUTE ; Start 03/27/17 at 07:06; Stop 03/27/17 at 07:07; Status DC Dexamethasone Sodium Phosphate (Decadron) 20 mg STK-MED ONCE .ROUTE ; Start at 07:09; Stop 03/27/17 at 07:10; Status DC Ondansetron HCl 4 mg 4 mg STK-MED ONCE .ROUTE ; Start 03/27/17 at 07:09; Stop at 07:10; Status DC Propofol (Diprivan) 20 ml @ As Directed STK-MED ONCE IV ; Start 03/27/17 at 07: 10; Stop 03/27/17 at 07:11; Status DC Lidocaine HCl (Lidocaine HCl 2% Abboject) 100 mg STK-MED ONCE .ROUTE ; Start at 07:10; Stop 03/27/17 at 07:11; Status DC Fentanyl Citrate (Fentanyl 2ml Vial) 100 mcg STK-MED ONCE .ROUTE ; Start at 07:10; Stop 03/27/17 at 07:11; Status DC Midazolam HCl (Versed) 2 mg STK-MED ONCE .ROUTE ; Start 03/27/17 at 07:10; Stop 03/27/17 at 07:11; Status DC Rocuronium [place] (Zemuron) 50 mg STK-MED ONCE .ROUTE ; Start 03/27/17 at 07:10 ; Stop 03/27/17 at 07:11; Status DC Fentanyl Citrate (Fentanyl 2ml Vial) 100 mcg STK-MED ONCE .ROUTE ; Start at 08:19; Stop 03/27/17 at 08:20; Status DC Glycopyrrolate (Robinul) 1 mg STK-MED ONCE .ROUTE ; Start 03/27/17 at 08:32; Stop 03/27/17 at 08:33; Status DC Vasopressin (Vasostrict) 20 unit STK-MED ONCE .ROUTE ; Start 03/27/17 at 08:52; Stop 03/27/17 at 08:53; Status DC Rocuronium [place] (Zemuron) 50 mg STK-MED ONCE .ROUTE ; Start 03/27/17 at 09:33 ; Stop 03/27/17 at 09:34; Status DC Sevoflurane 90 ml 90 ml STK-MED ONCE IH ; Start 03/27/17 at 09:39; Stop at 09:40; Status DC Acetaminophen 100 ml @ As Directed STK-MED ONCE IV ; Start 03/27/17 at 09:52; Stop 03/27/17 at 09:53; Status DC Acetaminophen (Ofirmev) 100 ml @ 400 mls/hr 1X ONCE IV Last administered on 09:53; Start 03/27/17 at 10:00; Stop 03/27/17 at 10:14; Status DC Fentanyl Citrate (Fentanyl 2ml Vial) 100 mcg STK-MED ONCE .ROUTE ; Start at 09:57; Stop 03/27/17 at 09:58; Status DC Neostigmine Methylsulfate 5 mg STK-MED ONCE .ROUTE ; Start 03/27/17 at 10:21; Stop 03/27/17 at 10:22; Status DC Cetirizine HCl (Zyrtec) 10 mg DAILY PO Last administered on 03/29/17 08:16; Start 03/27/17 at 11:00 Albuterol Sulfate (Ventolin Neb Soln) 2.5 mg 1X PRN PRN NEB SHORTNESS OF BREATH ; Start 03/27/17 at 11:00 Al Hydroxide/Mg Hydroxide (Mylanta Plus Xs) 30 ml PRN Q3HRS PRN PO DYSPEPSIA Last administered on 03/29/17 08:16; Start 03/27/17 at 11:00 Calcium Carbonate/ Glycine (Tums) 500 mg PRN Q3HRS PRN PO INDIGESTION; Start at 11:00 Simethicone (Gas-X) 80 mg PRN AFTMEALHC PRN PO GAS / BLOATING Last administered on 03/29/17 17:43; Start 03/27/17 at 11:00 Diphenhydramine HCl (Benadryl) 25 mg PRN Q6HRS PRN PO ITCHING; Start 03/27/17 at 11:00 Diphenhydramine HCl (Benadryl) 25 mg PRN Q6HRS PRN IV ITCHING; Start 03/27/17 at 11:15 Zolpidem Tartrate (Ambien) 5 mg PRN QHS PRN PO INSOMNIA; Start 03/27/17 at 11: 00 Naloxone HCl (Narcan) 0.1 mg PRN Q2MIN PRN IV SEE COMMENTS; Start 03/27/17 at 11:00 Sodium Chloride 3 ml 3 ml QSHIFT PRN IV AFTER MEDS AND BLOOD DRAWS; Start 03/27 at 11:00 Potassium Chloride/Sodium Chloride (KCl 20 Meq-NS 1,000 ml Iv Soln) 1,000 ml @ 125 mls/hr Q8H PRN IV SEE I/O RECORD Last administered on 03/27/17 20:54; Start 03/27/17 at 10:49 Hydromorphone HCl (Dilaudid) 0.2 mg PRN Q1HR PRN IV PAIN; Start 03/27/17 at 11: 00 Oxycodone/ Acetaminophen (Percocet 5/325) 2 tab PRN Q4HRS PRN PO MODERATE PAIN , SEVERE PAIN Last administered on 03/28/17 17:14; Start 03/27/17 at 11:00 Acetaminophen/ Hydrocodone Bitart (Lortab 5/325) 2 tab PRN Q4HRS PRN PO MODERATE PAIN, SEVERE PAIN Last administered on 03/29/17 08:17; Start 03/27/17 at 11:00 Ketorolac Tromethamine (Toradol) 30 mg PRN Q6HRS PRN IV PAIN Last administered on 03/28/17 06:02; Start 03/27/17 at 11:00; Stop 04/01/17 at 10:59 Lactulose 20 gm PRN Q12HR PRN PO CONSTIPATION; Start 03/27/17 at 11:00 Metoclopramide HCl (Reglan) 5 mg PRN Q6HRS PRN IV Nausea/Vomiting, 1st Choice; Start 03/27/17 at 11:00 Ondansetron HCl (Zofran) 4 mg PRN Q6HRS PRN IV Nausea, 2nd Choice; Start at 11:00 Ibuprofen (Motrin) 600 mg PRN Q6HRS PRN PO PAIN Last administered on 03/30/17 09:48; Start 03/27/17 at 11:00 Hydromorphone HCl (Dilaudid) 2 mg Q3HRS PRN IM PAIN Last administered on 18:34; Start 03/27/17 at 11:00 Bisacodyl (Dulcolax Supp) 10 mg PRN DAILY PRN MI CONSTIPATION Last administered on 03/29/17 06:15; Start 03/27/17 at 11:00 Iohexol (Omnipaque 300 Mg/ml) 50 ml 1X ONCE IV Last administered on 03/28/17 10:15; Start 03/28/17 at 09:30; Stop 03/28/17 at 09:31; Status DC Info (Do NOT chart on this entry -- for MONITORING) 1 each PRN DAILY PRN MC SEE COMMENTS; Start 03/28/17 at 09:30; Stop 03/30/17 at 09:29; Status DC Dexamethasone Sodium Phosphate (Decadron) 20 mg STK-MED ONCE .ROUTE ; Start at 14:28; Stop 03/30/17 at 14:29; Status DC Ondansetron HCl 4 mg 4 mg STK-MED ONCE .ROUTE ; Start 03/30/17 at 14:28; Stop at 14:29; Status DC Propofol (Diprivan) 20 ml @ As Directed STK-MED ONCE IV ; Start 03/30/17 at 14: 28; Stop 03/30/17 at 14:29; Status DC Desflurane (Suprane) 30 ml STK-MED ONCE IH ; Start 03/30/17 at 14:28; Stop 03/30 at 14:29; Status DC Fentanyl Citrate (Fentanyl 2ml Vial) 100 mcg STK-MED ONCE .ROUTE ; Start at 14:28; Stop 03/30/17 at 14:29; Status DC Ondansetron HCl (Zofran) 4 mg PRN Q6HRS PRN IV NAUSEA/VOMITING; Start 03/30/17 at 14:45; Stop 03/31/17 at 14:44 Fentanyl Citrate (Fentanyl 2ml Vial) 25 mcg PRN Q5MIN PRN IV MILD PAIN; Start 03/30/17 at 14:45; Stop 03/31/17 at 14:44 Fentanyl Citrate (Fentanyl 2ml Vial) 50 mcg PRN Q5MIN PRN IV MODERATE PAIN; Start 03/30/17 at 14:45; Stop 03/31/17 at 14:44 Morphine Sulfate 1 mg 1 mg PRN Q10MIN PRN IV SEVERE PAIN; Start 03/30/17 at 14: 45; Stop 03/31/17 at 14:44 Lactated Ringer's (Iv Lactated Ringers) 1,000 ml @ 0 mls/hr Q0M IV ; Start at 14:35; Stop 03/31/17 at 02:34 Lidocaine HCl 2 ml PRN 1X PRN ID PRIOR TO IV START; Start 03/30/17 at 14:45; Stop 03/31/17 at 14:44 Hydromorphone HCl (Dilaudid) 0.5 mg PRN Q10MIN PRN IV SEV PAIN, Second choice; Start 03/30/17 at 14:45; Stop 03/31/17 at 14:44 Iohexol (Omnipaque 300 Mg/ml) 50 ml STK-MED ONCE .ROUTE ; Start 03/30/17 at 14: 48; Stop 03/30/17 at 14:49; Status DC Lidocaine HCl (Glydo (Lidocaine) Jelly) 6 carson STK-MED ONCE .ROUTE ; Start at 14:49; Stop 03/30/17 at 14:50; Status DC Active Scripts Active Reported Ibuprofen 800 Mg Tablet 800 Mg PO [id number] PRN Betamethasone Dipropionate 15 Gm Cream..g. 1 Carson TP BID PRN Zyrtec (Cetirizine Hcl) 10 Mg Tablet 1 Tab PO DAILY Vitals/I & O Vital Sign - Last 24 Hours 03/29/17 03/29/17 03/29/17 03/30/17 15:00 20:21 20:25 03:44 Temp 98.4 98.6 98.4 98.4 98.6 98.4 Pulse 85 88 63 Resp 20 18 18 B/P 113/81 120/88 134/86 Pulse Ox 94 95 96 O2 Delivery Room Air Room Air Room Air Room Air 03/30/17 13:57 Temp 97.5 97.5 Pulse 80 Resp 18 B/P 126/87 Intake and Output 03/29/17 03/29/17 03/30/17 15:00 23:00 07:00 Output Total 480 ml 400 ml 190 ml Balance -480 ml -400 ml -190 ml BERNARD RIVERA MD Mar 30, 2017 14:54
[2017-03-30] MEDS ORDERED: LIDOCAINE 2% JELLY 6ML IN APPLICATOR. MM ONE (15:30)
--- NOTE | 2017-03-30 16:38 | PDOC4 ---
Operative Note Operative Note pre-op dx-elevated Cr. in J-P drainage fluid procedure-cystoscopy, bilateral retrograde pyelograms surgeon-mayra morrow-general Findings-Left ureter obstructed approx. 8 cm above left UO Pt. to PACU in stable condition. Will consult IR for left percutaneous nephrostomy placement BERNARD RIVERA MD Mar 30, 2017 16:38
[2017-03-30 17:45] VITALS: BP 121/72
--- NOTE | 2017-03-30 18:42 | OP ---
DATE OF SURGERY: 03/30/2017 OPERATION: Cystoscopy, bilateral retrograde pyelogram. SURGEON: Bernard Boo M.D. ANESTHESIA: General. PREOPERATIVE DIAGNOSIS: Elevated creatinine and Thang-Joshua fluid drainage with large Thang-Joshua fluids drainage output since hysterectomy on 03/27/2017. POSTOPERATIVE DIAGNOSIS: Left ureteral injury. INDICATIONS: The patient is a very pleasant 46-year-old -[place]ish female who underwent a total abdominal hysterectomy and enterolysis on 03/27/2017 for fibroid uterus and pelvic pain. The patient had Thang-Joshua drain placed at the time of operation and postoperatively patient has had large Thang-Joshua drainage. A creatinine on the Thang-Joshua drainage was drawn, which came back elevated at 91.1, consistent with urine. I discussed with the patient and her the options, alternatives, benefits, risks and possible complications of cystoscopy with bilateral retrograde pyelograms and possible ureteral stent placement. They understand this and they wish to proceed with the operation. DESCRIPTION OF PROCEDURE: After obtaining the informed consent, the patient was taken to operating room. After an excellent general anesthetic, the patient was placed in a dorsolithotomy position. Groin was prepped and draped in sterile fashion. The patient was preloaded with IV antibiotics. Panendoscopy and cystoscopy were then performed with the 30 and 70 degree lens and the 23-Burmese cystoscope sheath. Bladder was entered and inspected. Both ureteral orifices were identified and found to be grossly patent. The right ureteral orifice was noted to have clear efflux of urine. No efflux of urine was seen encountering from the left ureteral orifice. Bladder wall was inspected thoroughly and it was found to be completely intact with just minimal trabeculation. No bladder tumors or bladder stones were identified. A right retrograde pyelogram was then performed. The right ureter, renal pelvis and calices all appeared within normal limits and right side drained promptly. A left retrograde pyelogram was then performed and the left distal ureter was filled and it appeared to trace medially approximately 8 cm above the left ureteral orifice and then completely stopped consistent with probable ligation. No further contrast was seen to go proximal to that point; therefore, no stent would be possible in a retrograde fashion. Therefore, at this point, the procedure was terminated. The bladder was then drained and the cystoscope withdrawn from the patient. The patient tolerated the procedure very well, was taken to recovery room in stable condition. I talked with the patient and her about the findings at the end of the procedure along with Dr. Araujo, the patient's rib chopper. I also talked with Dr. Crabtree of Interventional Radiology and the plan will be to have Interventional Radiology place a left percutaneous nephrostomy to drainage in order to get the left kidney drainage diverted away from the abdomen and then we will also need to refer the patient for further evaluation and treatment of the left ureteral injury at Urology. BERNARD BOO MD DR: JACK/thu JOB#: [id number] / [id number] DARLING Armas MD
[2017-03-30 19:50] VITALS: BP 114/79
[2017-03-30] MEDS: BISACODYL 10 MG SUPP.RECT. PR PRN (20:35)
[2017-03-31] VITALS (8 sets, daily range): BP systolic 110–170; BP diastolic 71–106
--- NOTE | 2017-03-31 01:38 | CONS ---
DATE OF CONSULTATION: 03/30/2017 HISTORY OF PRESENT ILLNESS: The patient is a very pleasant 46-year-old -English female who is status post total abdominal hysterectomy and enterolysis on 03/27/2017. The patient was noted to have enlarged fibroid uterus and due to the amount of dissection required to perform the hysterectomy, a MOLLY drain was left postoperatively. The patient has done very well postoperatively. The patient, however, was noted to have large volume of MOLLY drainage postoperatively. An IVP was performed on 03/29/2017, which showed no ureteral dilation or extraluminal contrast and the MOLLY drainage fluid was sent for creatinine, which came back at 91.1. The patient's serum creatinine is 1.2. White count 8.7. The patient is afebrile and vital signs are stable. The patient has been feeling well and having no difficulty voiding through urethra. The patient with no past history of any urologic operations. The patient had had a previous UTI many years ago, which was treated with antibiotics and she has never had any urologic operations. PHYSICAL EXAMINATION: ABDOMEN: Soft with minimal discomfort, no CVA tenderness. The patient has a MOLLY drain suction and the drainage is serosanguineous. The patient has francisco javier on her Pfannenstiel incision. PLAN: I talked with the patient and her and Dr. Araujo concerning the patient's large MOLLY output, which was 1 liter on 03/30/2017, and the elevated creatinine of the MOLLY drain fluid concerning for urine. I discussed with the patient and her the options, alternatives, benefits, risks and possible complications of cystoscopy with bilateral retrograde pyelograms and possible ureteral stent placement on one or both sides if indicated. They understand this and do wish to proceed with operation. We will therefore proceed ahead accordingly. I certainly appreciate being allowed to participate in this patient's care. BERNARD RIVERA MD DR: JACK/thu JOB#: [id number] / [id number]
[2017-03-31] MEDS ORDERED: LIDOCAINE 1% / SOD BICARB 8.4% 20 ML VIAL. IJ ONE ×2 (09:00→09:05)
[2017-03-31] MEDS ORDERED: MIDAZOLAM HCL/PF 2 MG/2 ML VIAL. IV ONE (09:00)
[2017-03-31] MEDS ORDERED: fentaNYL PF VIAL 100 MCG/2 ML VIAL IV ONE (09:00)
[2017-03-31] MEDS ORDERED: IOHEXOL 300 MG/ML 100ML VIAL. ONE (09:04)
[2017-03-31] MEDS ORDERED: IOHEXOL 300 MG/ML 50 ML VIAL. ONE (09:23)
[2017-03-31] MEDS ORDERED: methylPREDNISolone SOD SUCC PF 125 MG/2 ML VIAL. ONE (09:27)
[2017-03-31] MEDS ORDERED: diphenhydrAMINE 50 MG/ML VIAL IVP ONE (09:45)
[2017-03-31] MEDS ORDERED: methylPREDNISolone SOD SUCC PF 125 MG/2 ML VIAL. IV ONE (09:45)
[2017-03-31] MEDS ORDERED: IOHEXOL 300 MG/ML 100ML VIAL. IART ONE (09:45)
--- NOTE | 2017-03-31 09:53 | RAD ---
C-arm fluoroscopy with fluoroscopic spot views History: Cystoscopy with bilateral retrograde urography Indications: Elevated creatinine after hysterectomy. Total fluoroscopic time: 2.3 minutes. Total fluoroscopic spot views: 8. IMPRESSION: Fluoroscopic spot images demonstrate retrograde opacification of both ureters. Please see surgeon's report for further details of what was performed..
--- NOTE | 2017-03-31 10:57 | PDOC4 ---
Operative Note Operative Note Procedure: Left percutaneous nephrostomy tube Indication: distal left ureteral injury bus operator: Radha Pereira Sugar Controller: Janelle Monge Findings: completele transection of the left distal ureter. No hydronephrosis or proximal hydroureter. Blood Loss: none complcation: none RADHA PEREIRA MD Mar 31, 2017 10:56
--- NOTE | 2017-03-31 11:08 | RAD ---
PROCEDURES: 1. Left percutaneous nephrostomy tube placement and diagnostic left sided nephrostogram. Indication: Distal left ureteral injury with spillage of urine into the pelvis. FLUOROSCOPY TIME 31.1 minutes Kerma Air Product: 115 Gycm^2 The procedure, risks, and complications, to include bleeding, infection were explained to the patient and they understood same and wished to proceed. Consent form signed. The left flank was prepped and draped using maximal sterile technique and 1% Xylocaine used for local anesthesia. Patient's collecting system is nondilated as there is no obstruction to urine flow. Therefore to opacify the calyces the patient was given a total of 90 cc intravenous Omnipaque 300. Using biplanar fluoroscopic guidance a mid polar calyx was eventually triangulated and accessed using a 22-gauge Chiba needle. Once access to the renal pelvis have been gained a 6 [place] Leticia set dilator system was used. Contrast was injected to opacify the collecting system and confirm placement of the wire needle. The tract was then dilated over an Amplatz wire to 8 [place]ayan. An 8 [place] drain was then advanced and the pigtail was formed in the renal pelvis. Contrast was injected to confirm placement. The distal ureter is nondilated. In the deep pelvis there is complete transection of the ureter with no administered contrast seen reaching the urinary bladder. There is opacification of the Thang-Joshua drain in the pelvis consistent with prior history of ureteral injury sustained during hysterectomy. Sedation: Conscious sedation for 49 minutes. A total of 4 mg of Versed and 200 mcg of fentanyl was administered. The patient was monitored by pulse oximetry and cardiovascular monitoring equipment and observed by the nurses in attendance. Complications: None Contrast: A total of 105 cc. 90 intravenous and 15 into the renal collecting system. The patient tolerated the procedure well and will be observed in the on the floor. IMPRESSION: 1. Successful placement of a left-sided percutaneous nephrostomy tube. There is complete distal ureteral transection with no contrast seen reaching the urinary bladder. The contrast drained out of the indwelling Thang-Joshua drain. The findings of the procedure were discussed with Dr. Araujo at 11:00 AM on March 31, 2017 on the day of the procedure by Dr. Bro [place].
--- NOTE | 2017-03-31 11:18 | PDOC ---
SURGICAL PROGRESS NOTE Subjective Doing well. No complaints of pain or discomfort. Is ambulating and tolerating diet, but had been made NPO for radiology procedure this am. Vital Signs Vital Signs Date Time Temp Pulse Resp B/P Pulse Ox O2 Delivery O2 Flow Rate FiO2 03/31/17 11:00 85 19 99 Room Air 03/31/17 00:34 97.7 110/71 97.7 03/30/17 16:11 10 I&O Intake and Output 03/31/17 07:00 Intake Total 940 ml Output Total 1420 ml Balance -480 ml Intake Oral 440 ml IV Total 500 ml Drainage Total 1420 ml Estimated Blood Loss 0 ml # Voids 3 PATIENT HAS A COLMENARES: No General: Alert, Oriented X3, Cooperative, No acute distress HEENT: Mucous membr. moist/pink Abdomen: Normal bowel sounds, Soft, No tenderness, No hepatosplenomegaly, No masses, Other (incision c/d/i) Extremities: No clubbing, No cyanosis, No edema, Normal pulses, No tenderness/ swelling Psych/Mental Status: Mental status NL, Mood NL Labs Laboratory Tests Test 03/29/17 13:30 03/31/17 04:53 Body Fluid Creatinine 91.1mg/dL (.) Prothrombin Time 13.0SEC (11.7-14.0) Prothromb Time International Ratio 1.0 (0.8-1.1) Activated Partial Thromboplast Time 26SEC (24-38) Laboratory Tests Test 03/31/17 04:53 Prothrombin Time 13.0SEC (11.7-14.0) Prothromb Time International Ratio 1.0 (0.8-1.1) Activated Partial Thromboplast Time 26SEC (24-38) I have reviewed the following vitals Problem List Problems Medical Problems: (1) Fibroid, uterine Status: Acute (2) Left ureteral injury- s/p percutaneous neprhrostomy this am. Plan is to contact [facility] and arrange for repair of ureter Status: Acute Radiology prefers pt spend the night tonight to make sure she doesn't have any bleeding from the kidney from her procedure this am. (3) Pelvic adhesive disease Status: Acute (4) Pelvic pain Status: Acute Problems: DARLING JOE MD Mar 31, 2017 11:18
[2017-03-31] MEDS: KETOROLAC TROMETHAMINE 30 MG/ML INJ. IV PRN (13:08)
[2017-03-31] MEDS: CETIRIZINE HCL 10 MG TABLET. PO SCH (21:41)
[2017-03-31] MEDS: IBUPROFEN 600 MG TABLET. PO PRN (21:42)
[2017-03-31] MEDS: MAG HYDROX/ALUMINUM HYD/SIMETH 30 ML ORAL.SUSP PO PRN (21:42)
[2017-04-01 05:28] VITALS: BP 131/80
[2017-04-01] MEDS: IBUPROFEN 600 MG TABLET. PO PRN (08:10)
--- NOTE | 2017-04-01 08:57 | DISCH ---
DISCHARGE INSTRUCTIONS Condition on Discharge Condition on Discharge: Stable Activity After Discharge Activity Instructions for Disc: Activity as tolerated, Avoid exertion, Progressive ambulation, Walk in house Exercise Instruction after Dis: Progress as tolerated Driving Instructions after Dis: No driving for 2 weeks Weight Bearing Status after Di: Full weight bearing, As tolerated Diet after Discharge Diet after Discharge: Regular Wound Incision Care Wound/Incision Care: Change dressing (Change dressings around drains as instructed), May get incision wet (may wash over abdominal incision) Wound Care Equipment: Dressings (Drain dressings and tape) Checks after Discharge DC Comment: Please record drainage from abdominal drain daily Contacting the DR. after DC Call your doctor for: If your condition worsens Follow-Up Follow up with: Dr. Araujo in office for post op visit on Saturday unless at DARLING HARTLEY MD April 01, 2017 08:57
--- NOTE | 2017-04-01 09:22 | PDOC3 ---
Discharge Summary Visit Information Date of Admission: Mar 27, 2017 Date of Discharge: April 01, 2017 Admitting Diagnosis: uterine fibroids, markedly enlarged uterus Final Diagnosis Problems Medical Problems: (1) Fibroid, uterine Status: Acute (2) Left ureteral injury Status: Acute (3) Pelvic adhesive disease Status: Acute (4) Pelvic pain Status: Acute Brief Hospital Course Allergies Allergies Coded Allergies Type Severity Reaction Last Updated Verified nickel Allergy Intermediate Hives 03/30/17 Yes Vital Signs Vital Signs Date Time Temp Pulse Resp B/P Pulse Ox O2 Delivery O2 Flow Rate FiO2 04/01/17 05:28 97.7 64 18 131/80 97.7 03/31/17 11:15 97 Room Air Lab Results Laboratory Tests Test 03/31/17 04:53 Prothrombin Time 13.0SEC (11.7-14.0) Prothromb Time International Ratio 1.0 (0.8-1.1) Activated Partial Thromboplast Time 26SEC (24-38) Brief Hospital Course Ms. Rosales is a 46 old female who presented last Saturday for hysterectomy due to markedly enlarged uterus. She underwent the planned procedure. The hysterectomy was very difficult due to the size of the uterus and the unexpected finding of extensive pelvic adhesive disease. A MOLLY drain was placed at the time of the surgery and post op, began producing unusually large amounts of pelvic fluid. Because of the large amounts of fluid produced by the MOLLY and the fact that the patient was not experiencing any further blood loss (after the surgery itself), an IVP was ordered to r/o any ureteral or bladder injury. The IVP did not show any extravasation of contrast. The patient continued, however, to produce large amounts of fluid from the MOLLY and a body fluid creatinine was ordered. It took about 24 hours to get this result back and it was 91, which was consistent with urine and not peritoneal fluid. Dr. Boo was consulted and decided to take the patient for cystoscopy with retrograde filling of the ureters. He discovered a ureteral injury on the L side of the pelvis. He then ordered a percutaneous nephrostomy tube to be placed. This was done yesterday. After the tube was placed, Dr. Rodas confirmed transection of the L ureter. The patient currently has a MOLLY drain in the pelvis and a L nephrostomy tube. She is otherwise doing well. She is tolerating regular diet, ambulating well and taking her oral pain medications. I have contacted urology to develop a plan for ureteral re-implantation. Pt is stable for discharge. Discharge Information Condition at Discharge: Improved Follow Up: Weeks (1) Disposition/Orders: D/C to Home Scheduled Cetirizine Hcl (Zyrtec) 1 TAB PO DAILY (Reported) Scheduled PRN Betamethasone Dipropionate (Betamethasone Dipropionate) 1 THERESE TP BID PRN PRN ITCHING (Reported) Ibuprofen (Ibuprofen) 800 MG PO [id number] PRN PRN INFLAMMATION (Reported) Patient Instructions Patient Instructions see list DARLING JOE MD April 01, 2017 09:22
--- NOTE | 2017-04-01 09:31 | PDOC ---
SURGICAL PROGRESS NOTE Subjective Doing well. Ambulating and eating. Pain controlled with oral meds Vital Signs Vital Signs Date Time Temp Pulse Resp B/P Pulse Ox O2 Delivery O2 Flow Rate FiO2 04/01/17 05:28 97.7 64 18 131/80 97.7 03/31/17 11:15 97 Room Air I&O Intake and Output 04/01/17 07:00 Intake Total 0 ml Output Total 1025 ml Balance -1025 ml Intake Oral 0 ml Drainage Total 1025 ml PATIENT HAS A COLMENARES: No General: Alert, Oriented X3, Cooperative, No acute distress HEENT: Mucous membr. moist/pink Abdomen: Soft, No tenderness, No hepatosplenomegaly, No masses, Other ( Incision c/d/i) Extremities: No clubbing, No cyanosis, No edema, Normal pulses, No tenderness/ swelling Labs Laboratory Tests Test 03/31/17 04:53 Prothrombin Time 13.0SEC (11.7-14.0) Prothromb Time International Ratio 1.0 (0.8-1.1) Activated Partial Thromboplast Time 26SEC (24-38) I have reviewed the following labs, drain outputs, vitals Problem List Problems Medical Problems: (1) Fibroid, uterine Status: Acute (2) Left ureteral injury Status: Acute - drain in place. Will contact [facility] today to arrange f/u for pt. Dr. Boo would like pt put on one dose of macrobid 100mg po at HS daily while drain is in. This was not done earlier because I asked Dr. Rodas and he didn't feel it was necessary (3) Pelvic adhesive disease Status: Acute (4) Pelvic pain Status: Acute Discharge today. Problems: DARLING JOE MD April 01, 2017 09:30
--- NOTE | 2017-04-01 10:55 | PDOC ---
PROGRESS NOTES Subjective Subjective Pt. feeling well Objective Objective Vital Signs Date Time Temp Pulse Resp B/P Pulse Ox O2 Delivery O2 Flow Rate FiO2 04/01/17 05:28 97.7 64 18 131/80 97.7 03/31/17 11:15 97 Room Air 03/30/17 16:11 10 Intake and Output 04/01/17 07:00 Intake Total 0 ml Output Total 1025 ml Balance -1025 ml Intake Oral 0 ml Drainage Total 1025 ml Physical Exam Physical Exam Left PCN tube in place J-P drain in place Plan Plan of Care Keep left PCN tube and J-P drains in place. Refer pt. to [facility] for further evaluation and treatment of left ureteral injury. Problems Medical Problems: (1) Fibroid, uterine Status: Acute (2) Left ureteral injury Status: Acute (3) Pelvic adhesive disease Status: Acute (4) Pelvic pain Status: Acute Comment Review of Relevant I have reviewed the following items shey (where applicable) has been applied. Labs Laboratory Tests Test 03/31/17 04:53 Prothrombin Time 13.0SEC (11.7-14.0) Prothromb Time International Ratio 1.0 (0.8-1.1) Activated Partial Thromboplast Time 26SEC (24-38) Medications Current Medications Ondansetron HCl (Zofran) 4 mg PRN Q6HRS PRN IV NAUSEA/VOMITING; Start 03/27/17 at 07:00; Stop 03/28/17 at 06:59; Status DC Fentanyl Citrate (Fentanyl 2ml Vial) 25 mcg PRN Q5MIN PRN IV MILD PAIN; Start 03/27/17 at 07:00; Stop 03/28/17 at 06:59; Status DC Fentanyl Citrate (Fentanyl 2ml Vial) 50 mcg PRN Q5MIN PRN IV MODERATE PAIN Last administered on 03/27/17 11:35; Start 03/27/17 at 07:00; Stop 03/28/17 at 06:59; Status DC Morphine Sulfate 1 mg 1 mg PRN Q10MIN PRN IV SEVERE PAIN Last administered on 11:31; Start 03/27/17 at 07:00; Stop 03/28/17 at 06:59; Status DC Lactated Ringer's (Iv Lactated Ringers) 1,000 ml @ 0 mls/hr Q0M IV Last administered on 03/27/17 06:53; Start 03/27/17 at 07:00; Stop 03/27/17 at 18:59 ; Status DC Lidocaine HCl 2 ml PRN 1X PRN ID PRIOR TO IV START; Start 03/27/17 at 07:00; Stop 03/28/17 at 06:59; Status DC Hydromorphone HCl (Dilaudid) 0.5 mg PRN Q10MIN PRN IV SEV PAIN, Second choice Last administered on 03/27/17 12:33; Start 03/27/17 at 07:00; Stop 03/28/17 at 06:59; Status DC Prochlorperazine Edisylate 5 mg 5 mg PACU PRN PRN IV NAUSEA, MRX1 Last administered on 03/27/17 10:56; Start 03/27/17 at 07:00; Stop 03/28/17 at 06:59 ; Status DC Cefazolin Sodium (Ancef 1gm Ivpb For Omni) 50 ml @ 100 mls/hr 1X PREOP PRN IV PRIOR TO PROCEDURE Last administered on 03/27/17 08:10; Start 03/27/17 at 06:00 ; Stop 03/27/17 at 18:00; Status DC Bupivacaine HCl/ Epinephrine Bitart (Marcaine-Epi 0.5%-1:[id number]) 50 ml STK-MED ONCE .ROUTE Last administered on 03/27/17 07:43; Start 03/27/17 at 07:06; Stop 03/27/17 at 07:07; Status DC Vasopressin (Vasostrict) 20 unit STK-MED ONCE .ROUTE ; Start 03/27/17 at 07:06; Stop 03/27/17 at 07:07; Status DC Dexamethasone Sodium Phosphate (Decadron) 20 mg STK-MED ONCE .ROUTE ; Start at 07:09; Stop 03/27/17 at 07:10; Status DC Ondansetron HCl 4 mg 4 mg STK-MED ONCE .ROUTE ; Start 03/27/17 at 07:09; Stop at 07:10; Status DC Propofol (Diprivan) 20 ml @ As Directed STK-MED ONCE IV ; Start 03/27/17 at 07: 10; Stop 03/27/17 at 07:11; Status DC Lidocaine HCl (Lidocaine HCl 2% Abboject) 100 mg STK-MED ONCE .ROUTE ; Start at 07:10; Stop 03/27/17 at 07:11; Status DC Fentanyl Citrate (Fentanyl 2ml Vial) 100 mcg STK-MED ONCE .ROUTE ; Start at 07:10; Stop 03/27/17 at 07:11; Status DC Midazolam HCl (Versed) 2 mg STK-MED ONCE .ROUTE ; Start 03/27/17 at 07:10; Stop 03/27/17 at 07:11; Status DC Rocuronium [place] (Zemuron) 50 mg STK-MED ONCE .ROUTE ; Start 03/27/17 at 07:10 ; Stop 03/27/17 at 07:11; Status DC Fentanyl Citrate (Fentanyl 2ml Vial) 100 mcg STK-MED ONCE .ROUTE ; Start at 08:19; Stop 03/27/17 at 08:20; Status DC Glycopyrrolate (Robinul) 1 mg STK-MED ONCE .ROUTE ; Start 03/27/17 at 08:32; Stop 03/27/17 at 08:33; Status DC Vasopressin (Vasostrict) 20 unit STK-MED ONCE .ROUTE ; Start 03/27/17 at 08:52; Stop 03/27/17 at 08:53; Status DC Rocuronium [place] (Zemuron) 50 mg STK-MED ONCE .ROUTE ; Start 03/27/17 at 09:33 ; Stop 03/27/17 at 09:34; Status DC Sevoflurane 90 ml 90 ml STK-MED ONCE IH ; Start 03/27/17 at 09:39; Stop at 09:40; Status DC Acetaminophen 100 ml @ As Directed STK-MED ONCE IV ; Start 03/27/17 at 09:52; Stop 03/27/17 at 09:53; Status DC Acetaminophen (Ofirmev) 100 ml @ 400 mls/hr 1X ONCE IV Last administered on t 09:53; Start 03/27/17 at 10:00; Stop 03/27/17 at 10:14; Status DC Fentanyl Citrate (Fentanyl 2ml Vial) 100 mcg STK-MED ONCE .ROUTE ; Start at 09:57; Stop 03/27/17 at 09:58; Status DC Neostigmine Methylsulfate 5 mg STK-MED ONCE .ROUTE ; Start 03/27/17 at 10:21; Stop 03/27/17 at 10:22; Status DC Cetirizine HCl (Zyrtec) 10 mg DAILY PO Last administered on 03/31/17 21:41; Start 03/27/17 at 11:00 Albuterol Sulfate (Ventolin Neb Soln) 2.5 mg 1X PRN PRN NEB SHORTNESS OF BREATH ; Start 03/27/17 at 11:00 Al Hydroxide/Mg Hydroxide (Mylanta Plus Xs) 30 ml PRN Q3HRS PRN PO DYSPEPSIA Last administered on 03/31/17 21:42; Start 03/27/17 at 11:00 Calcium Carbonate/ Glycine (Tums) 500 mg PRN Q3HRS PRN PO INDIGESTION; Start at 11:00 Simethicone (Gas-X) 80 mg PRN AFTMEALHC PRN PO GAS / BLOATING Last administered on 03/29/17 17:43; Start 03/27/17 at 11:00 Diphenhydramine HCl (Benadryl) 25 mg PRN Q6HRS PRN PO ITCHING; Start 03/27/17 at 11:00 Diphenhydramine HCl (Benadryl) 25 mg PRN Q6HRS PRN IV ITCHING; Start 03/27/17 at 11:15 Zolpidem Tartrate (Ambien) 5 mg PRN QHS PRN PO INSOMNIA; Start 03/27/17 at 11: 00 Naloxone HCl (Narcan) 0.1 mg PRN Q2MIN PRN IV SEE COMMENTS; Start 03/27/17 at 11:00 Sodium Chloride 3 ml 3 ml QSHIFT PRN IV AFTER MEDS AND BLOOD DRAWS; Start 03/27 at 11:00 Potassium Chloride/Sodium Chloride (KCl 20 Meq-NS 1,000 ml Iv Soln) 1,000 ml @ 125 mls/hr Q8H PRN IV SEE I/O RECORD Last administered on 03/27/17 20:54; Start 03/27/17 at 10:49; Stop 03/31/17 at 07:22; Status DC Hydromorphone HCl (Dilaudid) 0.2 mg PRN Q1HR PRN IV PAIN; Start 03/27/17 at 11: 00; Stop 03/31/17 at 07:24; Status DC Oxycodone/ Acetaminophen (Percocet 5/325) 2 tab PRN Q4HRS PRN PO MODERATE PAIN , SEVERE PAIN Last administered on 03/28/17 17:14; Start 03/27/17 at 11:00 Acetaminophen/ Hydrocodone Bitart (Lortab 5/325) 2 tab PRN Q4HRS PRN PO MODERATE PAIN, SEVERE PAIN Last administered on 03/29/17 08:17; Start 03/27/17 at 11:00 Ketorolac Tromethamine (Toradol) 30 mg PRN Q6HRS PRN IV PAIN Last administered on 03/31/17 13:08; Start 03/27/17 at 11:00; Stop 04/01/17 at 10:59 Lactulose 20 gm PRN Q12HR PRN PO CONSTIPATION; Start 03/27/17 at 11:00 Metoclopramide HCl (Reglan) 5 mg PRN Q6HRS PRN IV Nausea/Vomiting, 1st Choice; Start 03/27/17 at 11:00; Stop 03/31/17 at 07:22; Status DC Ondansetron HCl (Zofran) 4 mg PRN Q6HRS PRN IV Nausea, 2nd Choice; Start at 11:00; Stop 03/31/17 at 07:22; Status DC Ibuprofen (Motrin) 600 mg PRN Q6HRS PRN PO PAIN Last administered on 04/01/17 08:10; Start 03/27/17 at 11:00 Hydromorphone HCl (Dilaudid) 2 mg Q3HRS PRN IM PAIN Last administered on 18:34; Start 03/27/17 at 11:00; Stop 03/31/17 at 07:22; Status DC Bisacodyl (Dulcolax Supp) 10 mg PRN DAILY PRN NE CONSTIPATION Last administered on 03/30/17 20:35; Start 03/27/17 at 11:00 Iohexol (Omnipaque 300 Mg/ml) 50 ml 1X ONCE IV Last administered on 03/28/17 10:15; Start 03/28/17 at 09:30; Stop 03/28/17 at 09:31; Status DC Info (Do NOT chart on this entry -- for MONITORING) 1 each PRN DAILY PRN MC SEE COMMENTS; Start 03/28/17 at 09:30; Stop 03/30/17 at 09:29; Status DC Dexamethasone Sodium Phosphate (Decadron) 20 mg STK-MED ONCE .ROUTE ; Start at 14:28; Stop 03/31/17 at 07:22; Status DC Ondansetron HCl 4 mg 4 mg STK-MED ONCE .ROUTE ; Start 03/30/17 at 14:28; Stop at 07:22; Status DC Propofol (Diprivan) 20 ml @ As Directed STK-MED ONCE IV ; Start 03/30/17 at 14: 28; Stop 03/31/17 at 07:22; Status DC Desflurane (Suprane) 30 ml STK-MED ONCE IH ; Start 03/30/17 at 14:28; Stop 03/31 at 07:22; Status DC Fentanyl Citrate (Fentanyl 2ml Vial) 100 mcg STK-MED ONCE .ROUTE ; Start at 14:28; Stop 03/31/17 at 07:22; Status DC Ondansetron HCl (Zofran) 4 mg PRN Q6HRS PRN IV NAUSEA/VOMITING; Start 03/30/17 at 14:45; Stop 03/31/17 at 14:44; Status DC Fentanyl Citrate (Fentanyl 2ml Vial) 25 mcg PRN Q5MIN PRN IV MILD PAIN; Start 03/30/17 at 14:45; Stop 03/31/17 at 14:44; Status DC Fentanyl Citrate (Fentanyl 2ml Vial) 50 mcg PRN Q5MIN PRN IV MODERATE PAIN; Start 03/30/17 at 14:45; Stop 03/31/17 at 07:24; Status DC Morphine Sulfate 1 mg 1 mg PRN Q10MIN PRN IV SEVERE PAIN; Start 03/30/17 at 14: 45; Stop 03/31/17 at 07:22; Status DC Lactated Ringer's (Iv Lactated Ringers) 1,000 ml @ 0 mls/hr Q0M IV Last administered on 03/30/17t 16:28; Start 03/30/17 at 14:35; Stop 03/31/17 at 02:34 ; Status DC Lidocaine HCl 2 ml PRN 1X PRN ID PRIOR TO IV START; Start 03/30/17 at 14:45; Stop 03/31/17 at 14:44; Status DC Hydromorphone HCl (Dilaudid) 0.5 mg PRN Q10MIN PRN IV SEV PAIN, Second choice; Start 03/30/17 at 14:45; Stop 03/31/17 at 07:24; Status DC Iohexol (Omnipaque 300 Mg/ml) 50 ml STK-MED ONCE .ROUTE Last administered on 15:30; Start 03/30/17 at 14:48; Stop 03/31/17 at 07:22; Status DC Lidocaine HCl 6 carson 6 carson STK-MED ONCE .ROUTE Last administered on 03/30/17 15 :30; Start 03/30/17 at 14:49; Stop 03/31/17 at 07:22; Status DC Levofloxacin/ Dextrose (LEVAQUIN 500mg PREMIX) 100 ml @ As Directed STK-MED ONCE IV ; Start 03/30/17 at 15:03; Stop 03/31/17 at 07:22; Status DC Lidocaine HCl (Glydo (Lidocaine) Jelly) 6 carson STK-MED ONCE MM Last administered on 03/30/17 15:30; Start 03/30/17 at 15:30; Stop 03/31/17 at 07:22 ; Status DC Heparin Sodium/ Sodium Chloride 1,000 unit 1X ONCE IART Last administered on 10:57; Start 03/31/17 at 09:00; Stop 03/31/17 at 09:06; Status DC Lidocaine/Sodium Bicarbonate (Buffered Lidocaine 1%) 20 ml 1X ONCE IJ Last administered on 03/31/17 10:59; Start 03/31/17 at 09:00; Stop 03/31/17 at 09:06 ; Status DC Midazolam HCl (Versed) 2 mg 1X ONCE IV Last administered on 03/31/17 10:59; Start 03/31/17 at 09:00; Stop 03/31/17 at 09:06; Status DC Fentanyl Citrate (Fentanyl 2ml Vial) 100 mcg 1X ONCE IV Last administered on 4 /30/17at 10:58; Start 03/31/17 at 09:00; Stop 03/31/17 at 09:06; Status DC Iohexol (Omnipaque 300 Mg/ml) 100 ml STK-MED ONCE .ROUTE ; Start 03/31/17 at 09: 04; Stop 03/31/17 at 09:05; Status DC Lidocaine/Sodium Bicarbonate 20 ml 20 ml STK-MED ONCE IJ ; Start 03/31/17 at 09: 05; Stop 03/31/17 at 09:06; Status DC Heparin Sodium/ Sodium Chloride 500 ml @ As Directed STK-MED ONCE .ROUTE ; Start 03/31/17 at 09:05; Stop 03/31/17 at 09:06; Status DC Iohexol (Omnipaque 300 Mg/ml) 50 ml STK-MED ONCE .ROUTE ; Start 03/31/17 at 09: 23; Stop 03/31/17 at 09:24; Status DC Methylprednisolone Sodium Succinate 125 mg 125 mg STK-MED ONCE .ROUTE ; Start at 09:27; Stop 03/31/17 at 09:28; Status DC Cefazolin Sodium (Ancef 1gm Ivpb For Omni) 50 ml @ As Directed STK-MED ONCE IV ; Start 03/31/17 at 09:28; Stop 03/31/17 at 09:29; Status DC Iohexol (Omnipaque 300 Mg/ml) 100 ml 1X ONCE IART Last administered on 10:57; Start 03/31/17 at 09:45; Stop 03/31/17 at 09:51; Status DC Diphenhydramine HCl (Benadryl) 50 mg 1X ONCE IVP Last administered on 10:59; Start 03/31/17 at 09:45; Stop 03/31/17 at 09:51; Status DC Methylprednisolone Sodium Succinate (Solu-Medrol 125mg Vial) 125 mg 1X ONCE IV Last administered on 03/31/17 10:57; Start 03/31/17 at 09:45; Stop 03/31/17 at 09:51; Status DC Active Scripts Active Reported Ibuprofen 800 Mg Tablet 800 Mg PO BID94 PRN Betamethasone Dipropionate 15 Gm Cream..g. 1 [place] TP BID PRN Zyrtec (Cetirizine Hcl) 10 Mg Tablet 1 Tab PO DAILY Vitals/I & O Vital Sign - Last 24 Hours 03/31/17 03/31/17 03/31/17 03/31/17 10:58 11:00 11:15 11:31 Pulse 85 59 72 Resp 16 B/P 144/93 148/99 Pulse Ox 99 99 97 O2 Delivery Room Air Room Air Room Air 03/31/17 03/31/17 03/31/17 03/31/17 11:45 12:05 18:19 23:00 Temp 97.7 98.3 97.7 98.3 Pulse 67 66 89 77 Resp 18 B/P 136/83 139/84 113/77 123/78 04/01/17 05:28 Temp 97.7 97.7 Pulse 64 Resp 18 B/P 131/80 Intake and Output 03/31/17 03/31/17 04/01/17 15:00 23:00 07:00 Intake Total 0 ml Output Total 300 ml 215 ml 510 ml Balance -300 ml -215 ml -510 ml BERNARD RIVERA MD April 01, 2017 10:55
[2017-04-01 11:15] VITALS: BP 131/82
== END 2017-04-01 11:45 | disposition home or self-care (01) | DRG 742 ==
LOC: SURG 06:06 → 3 NORTH 11:00
PROVIDERS: ADMIT Obstetrics & Gynecology; ATTEND Obstetrics & Gynecology
PROC: 0UTC0ZZ Resection of Cervix, Open Approach (ICD-10-PCS; 2017-03-27)
PROC: 0DNW0ZZ Release Peritoneum, Open Approach (ICD-10-PCS; 2017-03-27)
PROC: 0UT90ZZ Resection of Uterus, Open Approach (ICD-10-PCS; principal; 2017-03-27 07:30)
PROC: 0TJB8ZZ Inspection of Bladder, Via Natural or Artificial Opening Endoscopic (ICD-10-PCS; 2017-03-30)
PROC: BT141ZZ Fluoroscopy of Kidneys, Ureters and Bladder using Low Osmolar Contrast (ICD-10-PCS; 2017-03-30)
PROC: 0T9130Z Drainage of Left Kidney with Drainage Device, Percutaneous Approach (ICD-10-PCS; 2017-03-31)
DX: D25.9 Leiomyoma of uterus, unspecified (principal); S37.10XA Unspecified injury of ureter, initial encounter; N73.6 Female pelvic peritoneal adhesions (postinfective); Z87.440 Personal history of urinary (tract) infections
CPT/HCPCS: 36415; 50432; 74400; 74420; 80048; 80053; 81025; 82570; 85014; 85018; 85027; 85610; 85730; 86850; 86900; 86901; 88307; A4215; C1729; C1769; C1894; J0131; J0690; J0780; J1100; J1170; J1200; J1885; J1956; J2250; J2270; J2405; J2704; J2710; J2930; J3010; J3490; J7120; Q9967